=== PATIENT | male | born 1980 | race Caucasian/White ===

== ENCOUNTER 2018-05-04 08:16 | Emergency (ER) | payer SELFPAY ==
[2018-05-04] MEDS: ACETAMINOPHEN 500 MG TAB PO (09:19)
[2018-05-04] MEDS: IBUPROFEN 600 MG TAB PO (09:19)
== END 2018-05-04 10:16 | disposition home or self-care (01) ==
LOC: FTE 08:16
DX: G44.209 Tension-type headache, unspecified, not intractable (principal); I10 Essential (primary) hypertension; R40.2412 Glasgow coma scale score 13-15, at arrival to emergency department
CPT/HCPCS: 99283